=== PATIENT | male | born 1950 ===

== ENCOUNTER → 2022-07-24 09:20 | Outpatient (CLI) | payer MEDICARE, SELFPAY ==
--- NOTE | ~2022-07-24 | MR_ITS ---
EXAMINATION: MR cervical spine wo con DATE: 07/24/2022 09:57 INDICATION: Cervical radiculopathy. TECHNIQUE: Magnetic resonance imaging (MRI) of the cervical spine was performed without intravenous c ontrast. COMPARISON: None FINDINGS: There is mild kyphosis of inferior cervical spine. Vertebral body heights are normal. There is mildly decreased disc height at C5-C6 and moderately decreased disc height at C6-C7. The spinal c ord signal intensity is normal. There is a 1.7 cm subcutaneous mass in left posterior neck, likely a sebaceous cyst. The following disc levels are specifically discussed: C2-C3: There is a central extrusion. There is mild right and moderate left uncovertebral joint osteoa rthritis. There is severe bilateral facet joint osteoarthritis. There is mild left neural foraminal s tenosis. There is no central canal stenosis. C3-C4: The disc does not extend beyond the endplate margin. There is severe right and mild left uncov ertebral joint osteoarthritis. There is severe right and mild left facet joint osteoarthritis. There is moderate right and mild left neural foraminal stenosis. There is no central canal stenosis. C4-C5: The disc does not extend beyond the endplate margin. There is mild right and severe right and mild left uncovertebral joint osteoarthritis. There is mild right and mild left facet joint osteoarth ritis. There is no neural foraminal stenosis. There is no central canal stenosis. C5-C6: The disc is bulging. There is severe bilateral uncovertebral joint osteoarthritis. There is mi ld bilateral facet joint osteoarthritis. There is mild right and moderate left neural foraminal steno sis. There is mild central canal stenosis. C6-C7: The disc is bulging. There is severe bilateral uncovertebral joint osteoarthritis. There is mi ld bilateral facet joint osteoarthritis. There is moderate right and mild left neural foraminal steno sis. There is mild central canal stenosis. C7-T1: There is a central extrusion. There is no uncovertebral joint osteoarthritis. There is mild bi lateral facet joint osteoarthritis. There is no neural foraminal stenosis. There is no central canal stenosis. IMPRESSION: 1. Moderate cervical spondylosis. Reviewed, dictated and finalized at location A.
== END ==
PROVIDERS: PCP Internal Medicine; Visit Provider Internal Medicine
DX: M54.12 Radiculopathy, cervical region (principal); M43.02 Spondylolysis, cervical region
CPT/HCPCS: 72141

== ENCOUNTER → 2022-11-14 09:12 | Outpatient (CLI) | payer MEDICARE, SELFPAY ==
--- NOTE | ~2022-11-14 | MR_ITS ---
EXAMINATION: MR lumbar spine wo con DATE: 11/14/2022 09:42 INDICATION: Low back strain. Low back pain. TECHNIQUE: Magnetic resonance imaging (MRI) of the lumbar spine was performed without intravenous con trast. Sequences included sagittal T2-weighted FSE, sagittal T2-weighted FS FSE, sagittal T1-weighted FSE, and axial T2-weighted FSE. COMPARISON: None FINDINGS: There is 5 mm anterolisthesis of L4 on L5. Vertebral body heights are normal. There is mild ly decreased disc height at L3-L4 and L4-L5 and severely decreased disc height at L5-S1. There are in sufficiency fractures of the S2 body and bilateral sacral ala. The following disc levels are specific ally discussed: L1-L2: The disc is bulging. There is moderate bilateral facet joint osteoarthritis. There is mild declan ateral neural foraminal stenosis. There is mild central canal stenosis. L2-L3: There is a right foraminal protrusion. There is moderate right and severe left facet joint ost eoarthritis. There is mild right neural foraminal stenosis. There is no central canal stenosis. L3-L4: The disc is bulging. There is moderate bilateral facet joint osteoarthritis. There is mild declan ateral neural foraminal stenosis. There is mild central canal stenosis. L4-L5: The disc is bulging and has an annular fissure. There is severe bilateral facet joint osteoart hritis. There is mild bilateral neural foraminal stenosis. There is mild central canal stenosis. L5-S1: The disc is bulging and has an annular fissure. There is moderate bilateral facet joint osteoa rthritis. There is mild bilateral neural foraminal stenosis. There is no central canal stenosis. IMPRESSION: 1. Acute/subacute sacral insufficiency fractures. 2. Severe lower lumbar spondylosis. Reviewed, dictated and finalized at location A.
== END ==
PROVIDERS: PCP Internal Medicine; Visit Provider Internal Medicine
DX: S39.012A Strain of muscle, fascia and tendon of lower back, initial encounter (principal); X58.XXXA Exposure to other specified factors, initial encounter; M47.896 Other spondylosis, lumbar region
CPT/HCPCS: 72148